=== PATIENT | female | born 1970 | race Caucasian/White ===

== ENCOUNTER 2020-05-22 05:43 | Emergency (ER) | payer MEDICAID ==
[~2020-05-22] VITALS: Ht 160 cm; Wt 72.6 kg
[2020-05-22 06:14] VITALS: BP 187/88
[2020-05-22] MEDS ORDERED: KETOROLAC TROMETH 60MG/2ML VIAL IM ONE (06:30)
[2020-05-22] MEDS ORDERED: diphenhdrAMINE HCL 50 MG/1 ML VL IM ONE (06:30)
[2020-05-22] MEDS ORDERED: METHOCARBAMOL 500 MG TAB PO ONE (06:30)
== END 2020-05-22 07:33 | disposition home or self-care (01) ==
LOC: ER 05:43
DX: G43.909 Migraine, unspecified, not intractable, without status migrainosus (principal); M54.2 Cervicalgia; F17.210 Nicotine dependence, cigarettes, uncomplicated
CPT/HCPCS: 96372; 99284; J1200; J1885